=== PATIENT | female | born 1935 | race Caucasian/White ===

== ENCOUNTER → 2023-08-12 13:50 | Outpatient (REF) | payer MEDICARE, OTHER, SELFPAY ==
[2023-08-12 14:47] LABS: ALT (SGPT) 19 U/L (0-35); AST (SGOT) 30 U/L (14-36); Albumin 4.4 g/dl (3.5-5.0); Alkaline Phosphatase 128 U/L (38-126); Blood Urea Nitrogen 29 mg/dl (7-17); Calcium 9.9 mg/dl (8.4-10.2); Carbon Dioxide 30 mmol/L (22-30); Chloride 99 mmol/L (98-107); Glucose 122 mg/dl (70-99); HDL Cholesterol 69 mg/dl; LDL Cholesterol, Calculated 74 mg/dl; Sodium 137 mmol/L (135-145); Total Bilirubin 0.9 mg/dl (0.2-1.3); Total Cholesterol 176 mg/dl (50-199); Total Protein 7.1 g/dl (6.3-8.2); Triglyceride 169 mg/dl (10-149); Very Low Density Lipoprotein 33 mg/dl (0-30); eGFR 48.33
[2023-08-13 11:05] LABS: Glycohemoglobin (HgbA1c) 6.4 % (4.0-5.6)
== END ==
LOC: REG 13:50
PROVIDERS: ATTENDING PHYSICIAN Family Medicine
DX: E78.2 Mixed hyperlipidemia (principal); E11.22 Type 2 diabetes mellitus with diabetic chronic kidney disease; N18.31 Chronic kidney disease, stage 3a
CPT/HCPCS: 36415; 80053; 80061; 83036

== ENCOUNTER → 2023-09-07 12:24 | Outpatient (REF) | payer MEDICARE, OTHER, SELFPAY ==
[2023-09-07 14:13] LABS: Urine Albumin Negative (Neg - Trace); Urine Bilirubin Negative (Negative); Urine Character Clear (Clear); Urine Color Yellow; Urine Glucose Negative (Negative); Urine Ketone Negative (Negative); Urine Leukocyte Trace (Negative); Urine Nitrite Positive (Negative); Urine Occult Blood Negative (Negative); Urine Specific Gravity 1.015 (<1.030); Urine Urobilinogen Negative (Neg - 1+)
[2023-09-07 14:36] LABS: Urine Urothelial Cell 0-2 /LPF (FEW)
[2023-09-07 14:37] LABS: Urine Bacteria Many (Negative); Urine Red Blood Cell 0-2 /HPF (0-2); Urine White Cell 16-20 /HPF (0-5)
== END ==
LOC: REG 12:24
PROVIDERS: ATTENDING PHYSICIAN Family Medicine
DX: R10.31 Right lower quadrant pain (principal); R50.9 Fever, unspecified
CPT/HCPCS: 81003; 81015; 87077; 87086; 87186

== ENCOUNTER → 2023-11-21 13:45 | Outpatient (REF) | payer MEDICARE, OTHER, SELFPAY | LOC: RAD 13:45 | PROVIDERS: ATTENDING PHYSICIAN Family Medicine | DX: S69.92XA Unspecified injury of left wrist, hand and finger(s), initial encounter (principal) | CPT/HCPCS: 73130 ==

== ENCOUNTER → 2023-12-06 15:00 | Outpatient (REF) | payer MEDICARE, OTHER, SELFPAY | LOC: RCS 15:00 | PROVIDERS: ATTENDING PHYSICIAN Internal Medicine Cardiovascular Disease; FAMILY PHYSICIAN Family Medicine | DX: I27.20 Pulmonary hypertension, unspecified (principal) | CPT/HCPCS: 93306 ==

== ENCOUNTER → 2023-12-22 13:16 | Outpatient (REF) | payer MEDICARE, OTHER, SELFPAY ==
[2023-12-22 15:49] LABS: Chloride 99 mmol/L (98-107)
[2023-12-22 15:51] LABS: ALT (SGPT) 20 U/L (0-35); AST (SGOT) 37 U/L (14-36); Albumin 4.4 g/dl (3.5-5.0); Alkaline Phosphatase 117 U/L (38-126); Blood Urea Nitrogen 30 mg/dl (7-17); Carbon Dioxide 30 mmol/L (22-30); Glucose 107 mg/dl (70-99); HDL Cholesterol 70 mg/dl; LDL Cholesterol, Calculated 61 mg/dl; Potassium 3.7 mmol/L (3.5-5.1); Sodium 139 mmol/L (135-145); Total Bilirubin 0.7 mg/dl (0.2-1.3); Total Cholesterol 157 mg/dl (50-199); Total Protein 6.8 g/dl (6.3-8.2); Triglyceride 133 mg/dl (10-149); Very Low Density Lipoprotein 26 mg/dl (0-30); eGFR 48.03
[2023-12-23 10:12] LABS: Glycohemoglobin (HgbA1c) 6.4 % (4.0-5.6)
== END ==
LOC: REG 13:16
PROVIDERS: ATTENDING PHYSICIAN Family Medicine
DX: E11.22 Type 2 diabetes mellitus with diabetic chronic kidney disease (principal); E78.2 Mixed hyperlipidemia
CPT/HCPCS: 36415; 80053; 80061; 83036

== ENCOUNTER → 2024-04-09 13:54 | Outpatient (REF) | payer MEDICARE, OTHER, SELFPAY ==
[2024-04-09 15:57] LABS: ALT (SGPT) 18 U/L (0-35); AST (SGOT) 32 U/L (14-36); Albumin 4.5 g/dl (3.5-5.0); Alkaline Phosphatase 114 U/L (38-126); Blood Urea Nitrogen 26 mg/dl (7-17); Calcium 9.7 mg/dl (8.4-10.2); Carbon Dioxide 31 mmol/L (22-30); Chloride 102 mmol/L (98-107); Glucose 96 mg/dl (70-99); HDL Cholesterol 75 mg/dl; LDL Cholesterol, Calculated 56 mg/dl; Potassium 3.8 mmol/L (3.5-5.1); Sodium 143 mmol/L (135-145); Total Bilirubin 0.8 mg/dl (0.2-1.3); Total Cholesterol 160 mg/dl (50-199); Total Protein 7.1 g/dl (6.3-8.2); Triglyceride 148 mg/dl (10-149); Very Low Density Lipoprotein 29 mg/dl (0-30); eGFR 48.03
[2024-04-10 08:58] LABS: Glycohemoglobin (HgbA1c) 6.2 % (4.0-5.6)
== END ==
LOC: REG 13:54
PROVIDERS: ATTENDING PHYSICIAN Family Medicine; FAMILY PHYSICIAN Internal Medicine Rheumatology; REFERRING PHYSICIAN Internal Medicine Critical Care Medicine
DX: E11.22 Type 2 diabetes mellitus with diabetic chronic kidney disease (principal); N18.31 Chronic kidney disease, stage 3a; E78.2 Mixed hyperlipidemia
CPT/HCPCS: 36415; 80053; 80061; 83036

== ENCOUNTER 2024-06-09 13:50 | Emergency (ER) | payer MEDICARE, OTHER, SELFPAY ==
[2024-06-09 13:59] VITALS: BP 168/67
[2024-06-09 14:26] LABS: % Basophils 0.7 % (0-2); % Eosinophils 2.2 % (0-6); % Immature Granulocytes 0.2 % (0-0.5); % Lymphocytes 42.9 % (20.5-51.1); % Monocytes 9.9 % (1.7-9.3); % Neutrophils 44.1 % (42.2-75.2); Absolute Eosinophils 0.1 10^3/uL (0-0.7); Absolute Lymphocytes 2.6 10^3/uL (1.2-3.4); Absolute Monocytes 0.6 10^3/uL (0.1-0.6); Absolute Neutrophils 2.7 10^3/uL (1.4-6.5); Hemoglobin 13.3 g/dL (12.0-16.0); Mean Corp Hgb Conc. 33.3 g/dL (33.0-37.0); Mean Corpuscular Hgb 31.7 pg (27.0-31.0); Mean Corpuscular Volume 95.2 fL (81.0-99.0); Nucleated Red Blood Cells % 0 %; Platelet Count 222 10^3/uL (130-400); Red Cell Dist. Width 11.8 % (11.5-14.5)
[2024-06-09 14:36] LABS: PT 13.5 Sec (11.4-14.6)
[2024-06-09 14:37] LABS: APTT 32.2 Sec (23.4-35.0)
[2024-06-09 14:46] LABS: ALT (SGPT) 18 U/L (0-35); AST (SGOT) 33 U/L (14-36); Albumin 4.9 g/dl (3.5-5.0); Alkaline Phosphatase 117 U/L (38-126); Blood Urea Nitrogen 24 mg/dl (7-17); Calcium 9.5 mg/dl (8.4-10.2); Carbon Dioxide 29 mmol/L (22-30); Chloride 99 mmol/L (98-107); Glucose 149 mg/dl (70-99); Potassium 3.8 mmol/L (3.5-5.1); Sodium 139 mmol/L (135-145); Total Protein 7.6 g/dl (6.3-8.2); eGFR 53.85
[2024-06-09 14:49] LABS: Troponin I 0.027 ng/ml
[2024-06-09 18:57] VITALS: BP 145/51
[2024-06-09 19:00] VITALS: BP 141/59
--- NOTE | 2024-06-09 19:49 | ED.GENMED ---
History of Present Illness
<Marvin Felipe DO - Last Filed: 06/09/24 19:51>
General
Chief Complaint: Visual Problem
Time Seen by Provider: 06/09/24 18:59
<Jeannette Ortiz PA-C - Last Filed: 06/11/24 03:47>
General
Source: patient and family
Exam Limitations: none
Nursing documentation reviewed up to this point in time: agreed with
History of Present Illness
History of Present Illness:
pt is a 88 yo F
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
wears glasses
noticed this morning when she happened to close her L eye that it was mroe blurry than usual
pt asys she knows her vision in her L is usually worse than R and wears glasses but this looked more blurry
no blackness/visual field cut
no eye pain
she was wiping it a few times toay and wasn't sure if there was a grittiness
she called dr. alejo her ey edoctor but couldn't get appt and was instructed to come here by her PCP
pt has not had a headache until now, she thinks mild headache because she is hungry. otherwise no: eye floaters, pressure, pain, problems moving eye, numbness/tingling/weakness in arms orlegs or face, no confusion, no speech problems, no gait
problesm
no cp, sob
Past History
<Marvin Felipe DO - Last Filed: 06/09/24 19:51>
Past History
ED Past Medical History: HTN, Hypercholesterolemia and Other (Lupus, polymyalgia rheumatica)
ED Past Surgical History: Other
Social History
Tobacco: Non-smoker
Alcohol: None
Drug: None
Living: with family
Employment: Retired
Review of Systems
<Jeannette Ortiz PA-C - Last Filed: 06/11/24 03:47>
Review of Systems
Allergies reviewed?: Yes
All Other Systems: Not applicable
Phy Exam
<Jeannette Ortiz PA-C - Last Filed: 06/11/24 03:47>
Physical Exam
Physical Exam:
GENERAL: Alert , in no apparent distress
HEAD: NCAT
EYE: pupils equal and reactive, no nystagmus, no photophobia
minimal uptake medial cornea approx 3 x 2 mm but not overlying the pupil
no obvious FB
red reflex normal
NECK: Supple,full rom, nontender
ENT: o/p clr, mmm.
CARDIAC: Regular rate and rhythm . no edema
LUNGS: Clear breath sounds bilaterally, no acute respiratory distress, no wheezes/rales/rhonchi
ABDOMEN: Soft, without focal tenderness, no r/g, no cvat
NEUROLOGICAL: Alert and orientedx 4, cn intact, pt has mild L facial droop with corner of mouth slightly down on the L and flattened nasolabial fold on the L but can elevate symmetricaly and believes this is baseline to her, 5/5 strength in UE/LE,
sensation intact, romberg neg, ambulates without assistance, neg pronator drift
SKIN: Warm and dry, skin intact.
MUSCULOSKELETAL: No edema, well perfused.
PSYCH: Normal and appropriate interaction.
Course
<Marvin Felipe DO - Last Filed: 06/09/24 19:51>
Orders/Labs/Results
Orders:
Orders
06/09/24 14:07
Electrocardiogram (*1) Urgent
Reason for Study: Other
Other Reason for Exam: Possible Stroke
CT Head W/o Iv Contrast Urgent
Comment:
Reason For Exam: blurred vision in L eye
EKG- Treatment ONCE
06/09/24 14:16
Complete Blood Count/With Diff Urgent
Comprehensive Metabolic Panel Urgent
PTT Urgent
Prothrombin Time Urgent
Troponin I Urgent
06/09/24 19:40
Tetracaine HCl [Tetracaine 0.5% Ophthalmic Solution] 1 drop .ROUTE .STK-MED ONE
06/09/24 20:06
Ofloxacin [Ocuflox] See Dose Instructions OPHTH NOW STA
Abnormal Lab Results
06/09/24
14:16
MCH 31.7 H pg
(27.0-31.0)
Monocytes % 9.9 H %
(1.7-9.3)
BUN 24 H mg/dl
(7-17)
Glucose 149 H mg/dl
(70-99)
06/09/24 14:16
06/09/24 14:16
Vital Signs
Initial and Last Documented VS:
Initial Vital Signs
Temp Pulse Resp BP Pulse Ox
36.6 C 58 16 168/67 98
06/09/24 13:59 06/09/24 13:59 06/09/24 13:59 06/09/24 13:59 06/09/24 13:59
Last Documented Vital Signs
Temp Pulse Resp BP Pulse Ox
36.6 C 61 15 134/57 98
06/09/24 13:59 06/09/24 20:00 06/09/24 20:00 06/09/24 20:00 06/09/24 19:45
<Jeannette Ortiz PA-C - Last Filed: 06/11/24 03:47>
Orders/Labs/Results
Orders:
Orders
06/09/24 14:07
Electrocardiogram (*1) Urgent
Reason for Study: Other
Other Reason for Exam: Possible Stroke
CT Head W/o Iv Contrast Urgent
Comment:
Reason For Exam: blurred vision in L eye
EKG- Treatment ONCE
06/09/24 14:16
Complete Blood Count/With Diff Urgent
Comprehensive Metabolic Panel Urgent
PTT Urgent
Prothrombin Time Urgent
Troponin I Urgent
06/09/24 19:40
Tetracaine HCl [Tetracaine 0.5% Ophthalmic Solution] 1 drop .ROUTE .STK-MED ONE
06/09/24 20:06
Ofloxacin [Ocuflox] See Dose Instructions OPHTH NOW STA
Abnormal Lab Results
06/09/24
14:16
MCH 31.7 H pg
(27.0-31.0)
Monocytes % 9.9 H %
(1.7-9.3)
BUN 24 H mg/dl
(7-17)
Glucose 149 H mg/dl
(70-99)
06/09/24 14:16
06/09/24 14:16
Vital Signs
Initial and Last Documented VS:
Initial Vital Signs
Temp Pulse Resp BP Pulse Ox
36.6 C 58 16 168/67 98
06/09/24 13:59 06/09/24 13:59 06/09/24 13:59 06/09/24 13:59 06/09/24 13:59
Last Documented Vital Signs
Temp Pulse Resp BP Pulse Ox
36.6 C 61 15 134/57 98
06/09/24 13:59 06/09/24 20:00 06/09/24 20:00 06/09/24 20:00 06/09/24 19:45
[place];Jeannette Ortiz PA-C - Last Filed: 06/11/24 03:47>
MDM/Problems Addressed
Differential Diagnosis Includes:
corneal abrasion, retinal issue, migraine, less likely stroke
MDM/Problems Addressed:
88-year-old female anticoagulated for history of DVT presents for blurred vision in her left eye worse than normal. She apparently always has worse vision in her left eye but happened to notice it was worse when she closed her right eye today. She
has not had any significant headache, eye pain, floaters, weakness in that eye, ptosis, double vision, neck pain. Patient has a mild headache now after not having had anything to eat for several hours but otherwise feels well. She has a
chronically flattened left nasolabial fold and corner of her mouth is slightly drawn down on the left that initially the daughter was not sure was chronic but the patient reports that her face feels normal and she knows that it is asymmetric, she
can elevate her left face normally. Her eye exam on fluorescein stain with Patterson lamp does show some uptake medially to the pupillary axis overlying the cornea which looks like an abrasion 3 x 2 mm irregularly shaped, there is no foreign body, EOMs
are normal, red reflexes normal, CT of her head shows some chronic microvascular disease but otherwise nothing acute, her EKG shows a T wave inversion in 1 and aVL which is unchanged and her troponin is .02 has no chest pain
feels comfortable going home with ophthalmology follow-up, will apply the oflox drops to her left eye to treat the abrasion 0
To prevent infection
<Jeannette Ortiz PA-C - Last Filed: 06/11/24 03:47>
*Critical Care Note
Total Time (30-74mins, 75-104mins- exclusive of procedures): Not Applicable
ED Attending Note
<Marvin Felipe DO - Last Filed: 06/09/24 19:51>
ED Attending Note
Patient seen and examined by attending physician: Yes
I performed the substantive portion of visit, reviewed & personally made and approve the management plan that is documented in note by myself or KAIA.: Yes
-
Portions of this chart may have been created with voice recognition software.� Occasional wrong word or��sound alike� substitutions may have occurred due to the inherent limitations of voice recognition software.
Discharge Plan
Departure
Patient Disposition: Home (Routine Discharge)
Date of Disposition: 06/09/24
Time of Disposition: 20:02
Patient with high blood pressure during this ER visit?: Yes
Condition: Fair
Covid-19: Not Applicable
Discharge Problem:
Abrasion, corneal, Blurred vision, left eye
Instructions: Corneal Abrasion ED
Prescriptions:
New
ofloxacin [Ocuflox] 0.3 % drops
2 drp LEFT EYE QID 5 Days Qty: 5 0RF
No Action
alprazolam 0.25 MG tablet
0.5 mg PO HS
calcium carbonate [Oyster Shell Calcium 500] 500 MG tablet
500 mg PO DAILY
omeprazole 20 MG capsule,delayed release(DR/EC)
40 mg PO DAILY
Fiber Con
2 tab PO DAILY
potassium chloride 10 MEQ capsule, extended release
10 meq PO DAILY
atorvastatin 20 MG tablet
20 mg PO DAILY
losartan-hydrochlorothiazide 1 EACH tablet
1 ea PO DAILY
docusate sodium [Colace] 100 MG capsule
200 mg PO HS
ondansetron 4 MG tablet,disintegrating
4 mg PO Q8H PRN (Reason: nausea)
duloxetine 20 MG capsule,delayed release(DR/EC)
20 mg PO HS
Myrbetriq 25 MG tablet extended release 24 hr
50 mg PO DAILY
meclizine 25 MG tablet
25 mg PO Q8HPRN PRN (Reason: vertigo/dizziness) Qty: 15 0RF
cephalexin 500 mg Capsule
500 mg PO QID Qty: 24 0RF
Eliquis 5 MG tablet
2.5 mg PO BID Qty: 30 0RF
metoprolol succinate 50 mg Tablet Extended Release 24 Hr
50 mg PO HS
Referrals:
Guido Prado MD [Family Provider] -
Activity Restrictions/Additional Instructions:
You should definitely follow-up with Dr. Alejo tomorrow. Please call for an appointment and tell them that you are in the emergency department and need to be seen. You do have some uptake medially on your cornea which could represent a scratch.
Try applying erythromycin ointment 3-4 times a day while awake for 5 to 7 days. It should heal on its own. Return for severe headache, vision double vision, weakness etc.
Interventions
Interventions:
*Risk Screen - Suicide Last Done: 06/09/24 13:59
*General Assessment Last Done: 06/09/24 18:59
*Neglect/Abuse Screening Last Done: 06/09/24 13:59
ED- Fall Risk Assessment Last Done: 06/09/24 20:16
*ED COVID-19 Vaccine History Last Done: 06/09/24 18:59
*Nursing Disposition Last Done: 06/09/24 20:16
ED- Neurological Assessment Last Done: 06/09/24 18:59
ED-EENT Assessment Last Done: 06/09/24 14:08
ED Swallowing Screen Last Done: 06/09/24 20:15
Discharge Date and Time
Discharge Date/Time: 06/09/24 20:38
Print Language: YI
[2024-06-09 20:00] VITALS: BP 134/57
[2024-06-09] MEDS: OCUFLOX 2 DROP OPHTH (20:09)
== END 2024-06-09 20:38 | disposition home or self-care (01) ==
LOC: EMR 13:50
PROVIDERS: EMERGENCY PHYSICIAN Emergency Medicine; FAMILY PHYSICIAN Family Medicine
DX: H53.8 Other visual disturbances (principal); S05.02XA Injury of conjunctiva and corneal abrasion without foreign body, left eye, initial encounter; X58.XXXA Exposure to other specified factors, initial encounter; I10 Essential (primary) hypertension; E78.00 Pure hypercholesterolemia, unspecified; I27.20 Pulmonary hypertension, unspecified
CPT/HCPCS: 99285; 70450; 80053; 84484; 85025; 85610; 85730; 93005

== ENCOUNTER → 2024-06-20 16:51 | Outpatient (REF) | payer MEDICARE, OTHER, SELFPAY ==
[2024-06-20 17:33] LABS: C-Reactive Protein < 5.00 mg/L (0.0-10.00)
== END ==
LOC: REG 16:51
PROVIDERS: ATTENDING PHYSICIAN Internal Medicine Rheumatology; FAMILY PHYSICIAN Family Medicine
DX: M31.6 Other giant cell arteritis (principal)
CPT/HCPCS: 36415; 86140